=== PATIENT | female | born 1950 | race Asian ===

== ENCOUNTER → 2023-01-16 14:26 | Outpatient (CLI) | payer MEDICARE, OTHER, SELFPAY ==
[2023-01-16 15:43] LABS: Uric Acid 5.7 mg/dL (2.5-6.2)
[2023-01-18 07:54] LABS: Parathyroid Hormone Int 61 pg/mL (15-65)
== END ==
PROVIDERS: PCP Internal Medicine; Referring Provider Urology; Visit Provider Urology
DX: N20.0 Calculus of kidney (principal)
CPT/HCPCS: 36415; 83970; 84550

== ENCOUNTER → 2023-01-21 10:50 | Outpatient (CLI) | payer MEDICARE, OTHER, SELFPAY ==
--- NOTE | 2023-01-21 10:57 | DI.CT.S_ITS ---
PROCEDURE: CT ANGIO ABDOMEN PELVIS INDICATIONS: Gross hematuria TECHNIQUE: After the administration of intravenous contrast, 2.5 mm sections acquired from the diaphragm to the iliac crests. 10 mm maximum intensity projection (MIP) coronal and sagittal reformats were then performed. For radiation dose reduction, the following was used: automated exposure control. COMPARISON: [facility], CT, CT IVP, 07/12/2022, 12:47. FINDINGS: Image quality: Excellent. Lung bases: Lung bases are clear. Heart size is normal. Solid organs: Liver: The liver has no mass or intrahepatic biliary ductal dilatation. The portal vein and hepatic veins are patent. Biliary: The gallbladder has no gallstones, pericholecystic fluid, gallbladder wall thickening, or surrounding inflammatory change. Pancreas: The pancreas has no mass or ductal dilatation. There is no surrounding inflammation. Spleen: The spleen has central hypoattenuation which could be due to differential enhancement in the arterial phase versus infiltrative neoplasm. Adrenals: No hypertrophy or nodules. Kidneys: Previously seen renal calcifications are significantly reduced in volume. There are 2 calcifications in the right kidney measuring 5 mm and 6 mm and a 7 mm calcification in the left inferior pole and a few additional subcentimeter calcifications in the left kidney. The left kidney has multiple areas of low density with severe cortical thinning and cystic change similar to the prior CT on 07/12/2022. Both collecting systems have an irregular appearance, possibly scarring as previously large staghorn calculi were present. Peritoneum and bowel: Small hiatal hernia. The stomach and small bowel are normal. The large bowel has stool throughout. The small bowel has a normal caliber and appearance. The terminal ileum is normal. The large bowel has a normal caliber and appearance. The appendix is not definitively visualized and therefore acute appendicitis cannot be excluded; however there are no secondary findings to suggest acute appendicitis. No free fluid or air. Nodes and vessels: Left para-aortic adenopathy with the largest lymph node measuring 1.7 cm, unchanged compared to the prior CT. The aorta has atherosclerosis with no aneurysmal dilatation. Miscellaneous: No abdominal wall mass or hernia. PELVIS: Genitourinary: The bladder is empty. Wall thickening of the bladder. Bones: No suspicious bony lesions. No vertebral body compression fractures. Abdominal aorta: Normal caliber with diffuse atherosclerotic calcifications. No aneurysm or dissection. Mesenteric arteries: Patent Renal arteries: Patent IMPRESSION: 1. Previously seen renal calcifications are mostly no longer present. Multiple residual subcentimeter calcifications are present currently but do not appear obstructive. 2. Interval extraction of bilateral staghorn calculi with residual irregularity of the renal pelvicies. 3. Left para-aortic adenopathy, probably reactive. 4. Except for diffuse atherosclerotic calcifications, CT angiogram of the aorta and its mesenteric, renal and iliac branches is normal. Dictated by: Antonio Galvin M.D. on 01/21/2023 at 16:06 Approved by: Antonio Galvin M.D. on 01/22/2023 at 8:43
[2023-01-21 11:40] LABS: Estimated Glomerular Filt Rate > 60 mL/min (>60)
== END ==
PROVIDERS: Radiology Diagnostic Radiology; PCP Internal Medicine; Referring Provider Urology; Visit Provider Urology
DX: N20.0 Calculus of kidney (principal); R31.0 Gross hematuria; K44.9 Diaphragmatic hernia without obstruction or gangrene; I70.0 Atherosclerosis of aorta; R59.0 Localized enlarged lymph nodes
CPT/HCPCS: 36415; 74174; 82565; Q9967

== ENCOUNTER 2023-10-03 12:23 | Emergency (ER) | payer MEDICARE, OTHER, SELFPAY ==
[2023-10-03] VITALS (16 sets, daily range): BP systolic 96–135; BP diastolic 53–65; PULSE 65–88; RESP 15–29; TEMP 37.3; O2SAT 97–100; BMI 26.9
--- NOTE | 2023-10-03 12:39 | EKG_ITS ---
[address] [address] Test Date: 2023-10-03 Pat Name: Mirtha Lino Department: Room: Gender: Female Sales And Service Associate: JOSE ROBERTO : 1950 Requested By: Order Number: [id number] Reading MD: [place] Rodrigez Measurements Intervals [place] Rate: 77 P: -16 MO: 146 QRS: 77 QRSD: 134 T: 11 QT: 414 QTc: 468 Interpretive Statements Normal sinus rhythm Right bundle branch block Electronically Signed On 10-08-2023 8:59:33 PDT by [place] Rodrigez
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
[2023-10-03 16:33] LABS: Add Manual Diff / Slide Review NO; Basophils Absolute Auto 0 /uL (0-100); Basophils Percent Auto 0.5 % (0-2); Eosinophils Absolute Auto 100 /uL (0-450); Eosinophils Percent Auto 1.2 % (2-4); Hematocrit 28.4 % (36-46); Hemoglobin 9.7 g/dL (12.0-16.0); Lymphocytes Absolute Auto 2200 /uL (1100-4500); Lymphocytes Percent Auto 37.7 % (25-40); Mean Corpuscular HGB Conc 34.3 % (30-36); Mean Corpuscular Hemoglobin 31.8 PG (26-34); Mean Corpuscular Volume 92.9 fL (80-100); Monocytes Absolute Auto 400 /uL (0-900); Monocytes Percent Auto 6.4 % (3-14); Neutrophils Absolute Auto 3200 /uL (1500-7000); Neutrophils Percent Auto 54.2 % (50-75); Platelet Count 215 X10^3/uL (150-400); Red Blood Cell Count 3.06 X10^6/uL (4.0-5.2); Red Cell Distribution Width 13.1 % (11.6-14.8); White Blood Cell Count 5.8 X10^3/uL (4.5-11.0)
[2023-10-03 16:46] LABS: INR 1.1 (0.9-1.3); Prothrombin Time 12.7 SECONDS (9.4-12.5)
[2023-10-03 16:50] LABS: Alanine Aminotransferase 20 IU/L (<35); Albumin 4.2 g/dL (3.5-5.0); Albumin Globulin Ratio 1.5 (1.0-2.8); Alkaline Phosphatase 75 U/L (38-126); Aspartate Aminotransferase 30 IU/L (14-36); BUN Creatinine Ratio 47.4 (6-22); Bilirubin Total 0.6 mg/dL (0.2-1.3); Blood Urea Nitrogen 45 mg/dL (7-17); Calcium 9.3 mg/dL (8.4-10.2); Carbon Dioxide 28 mmol/L (22-32); Chloride 108 mmol/L (98-107); Estimated Glomerular Filt Rate > 60 mL/min (>60); Globulin 2.8 g/dL (1.7-4.1); Glucose 86 mg/dL (80-110); HEMOLYSIS < 15 (0-50); Magnesium 2.3 mg/dL (1.6-2.3); Sodium 140 mmol/L (137-145)
[2023-10-03 16:50] LABS: UR Morphine/Opiate cutoff 300 Negative (Negative); Ur Creatinine Normal (Normal); Ur Specific Gravity Normal (Normal); Urine Amphetamines Negative (Negative); Urine Barbiturates Negative (Negative); Urine Benzodiazepines Negative (Negative); Urine Cocaine Negative (Negative); Urine MDMA Negative (Negative); Urine Methadone Negative (Negative); Urine Methamphetamines Negative (Negative); Urine Oxycodone Negative (Negative); Urine Phencyclidine Negative (Negative); Urine Tetrahydrocannabinol Negative (Negative); Urine Tricyclic Antidepressant Negative (Negative); Urine pH Normal (Normal)
[2023-10-03 17:02] LABS: Troponin I < 0.012 ng/mL (0.01-0.034)
[2023-10-03 17:21] LABS: Thyroid Stimulating Hormone 3.29 uIU/mL (0.47-4.68)
== END 2023-10-03 17:46 | disposition home or self-care (01) ==
PROVIDERS: Emergency Provider Emergency Medicine; Family Provider Internal Medicine; PCP Internal Medicine
DX: R00.2 Palpitations (principal)
CPT/HCPCS: 80053; 80305; 83735; 84443; 84484; 85025; 85610; 93005; 99282

== ENCOUNTER 2024-01-15 07:55 | Day surgery (SDC) | payer MEDICARE, OTHER, SELFPAY ==
--- NOTE | 2024-01-15 | PATH_ITS ---
[facility] Accession Number: [id number] No. of containers..01 Tissue . 01 Material submitted: . gastrointestinal site - GASTRIC . 01 Diagnosis: GASTRIC: Gastric mucosa with no diagnostic alterations. No Helicobacter organisms identified on H/E stain. No intestinal metaplasia, dysplasia, or malignancy identified. [facility] 01/16/20241723 Local . 01 Electronically signed: . Jonny Guzmán MD, Pathologist NPI- [id number] . 01 Gross description: . GASTRIC: Received in formalin are 2 fragment(s) of ochoa, soft tissue measuring 0.2 x 0.2 x 0.2 cm to 0.4 x 0.2 x 0.2 cm submitted entirely in 1 cassette(s) /THIEN 01/16/20241723 Local . 01 Pathologist provided ICD-10: K92.1 . 01 CPT . 719670 Specimen Comment: A courtesy copy of this report has been sent to [phone] Performed at: [address] [facility] [address] [address], [place], [place] [id number] MD Jonny Guzmán MD Phone: [phone]
[2024-01-15 08:31] VITALS: BP 107/64; PULSE 77; RESP 17; TEMP 36.7; O2SAT 96
--- NOTE | 2024-01-15 08:34 | PM.HP.1 ---
History of Present Illness History of Present Illness Chief complaint: EGD & Colonoscopy Narrative: Iron deficiency anemia, melena, history of colon polyps PFSH Medical History (Updated 01/15/24 @ 08:16 by Mary Dias, ZACHARY) Hx of renal calculi Hx of tongue cancer Hx of iron deficiency anemia History of high cholesterol Hx of gastroesophageal reflux (GERD) Surgical History (Updated 01/15/24 @ 08:16 by Mary Dias RN) Hx of hysterectomy Social History Smoking Status: Never smoker alcohol intake: current Meds Home Medications and Allergies Home Medications Medication Instructions Recorded Confirmed Type atorvastatin 20 mg tablet 20 mg PO DAILY 01/15/24 01/15/24 History coenzyme Q10 100 mg capsule 100 mg PO DAILY 01/15/24 01/15/24 History ferrous sulfate 325 mg (65 mg 325 mg PO DAILY 01/15/24 01/15/24 History iron) tablet pantoprazole 40 mg tablet,delayed 40 mg PO DAILY 01/15/24 01/15/24 History release turmeric 400 mg capsule 1 PO 01/15/24 History vit C-vit N-ryvjth-lyuddatw capsule 1 cap PO DAILY 01/15/24 01/15/24 History vitamin B complex 1 cap PO DAILY 01/15/24 01/15/24 History zinc methionine sulfate 15 1 cap PO DAILY 01/15/24 01/15/24 History mg-copper gluconate 1 mg capsule Allergies Allergy/AdvReac Type Severity Reaction Status Date / Time prochlorperazine Allergy Anaphylaxis Verified 01/15/24 08:25 [From Compazine] Exam Vital Signs (past 8 hours): - 01/15/24 08:31 Temperature 98.1 F Pulse Rate 77 Respiratory Rate 17 Blood Pressure 107/64 Pulse Oximetry 96 Oxygen Delivery Method Room Air Oxygen Delivery Method Room Air Narrative Exam Narrative: Oropharynx free of lesions Chest clear to auscultation percussion Cardiac exam reveals no S3 or murmur Assessment & Plan Assessment & Plan narrative: Iron deficiency anemia melena and history of colon polyps need for follow-up EGD and colonoscopy. Risks, benefits, alternatives have been explained. Time-Based Coding :: [TOTAL MINUTES] spent with patient and on the chart (including review of chart, obtaining history, exam, reviewing outside data, placing orders, documenting exam and treatment plan, and counseling patient) on [DATE].
--- NOTE | 2024-01-15 08:35 | PM.OP.EC ---
Operative Date/Time/Diagnoses Date of procedure: 01/15/24 Pre-op diagnosis: See indication and findings Procedure & Clinicians Study performed: EGD and colonoscopy Indications: Melena and iron deficiency anemia. In addition, history of colon polyps Surgeon: Monie Barnett Procedure Notes Procedure in detail: After informed consent was obtained the patient was placed in left lateral decubitus position. The video upper scope was placed into the oropharynx and with the patient's help swallowed into the esophagus. The esophagus stomach and duodenum were carefully examined. On withdrawal retroflexed view the GE junction was performed. The patient was then turned to the colonoscope substituted. This is been placed into the rectum advanced there was a very tight turn at 40 cm. After multiple attempts to try to pass aborted the procedure.. On slow withdrawal mucosa was carefully examined. The scope was removed. The patient tolerated procedure well. Blood loss none Complications none Sedation mac Findings EGD 1. Completely normal esophagus with normal squamocolumnar junction 2. Normal proximal stomach 3. Distal stomach with a shallow healing ulceration with a pigmented base. Other areas in stomach had the area is of erythema and edema. Biopsies were taken to rule out Helicobacter 4. Normal duodenal bulb and sweep Colonoscopy 1. Very tight and angulated sigmoid turn unable to pass 2. Normal colonoscopy to 40 cm The main issue here is the melena and iron deficiency anemia from healing ulcer. She should get on famotidine 20 mg b.i.d. [id number] for the next 2 months and then consider a follow-up endoscopy to document healing. Will also follow up on the biopsy results The if in fact she needs colorectal cancer screening completed stool based test would be recommended
[2024-01-15 09:36] VITALS: BP 114/68; PULSE 75; RESP 22; TEMP 36.2; O2SAT 94
[2024-01-15 09:41] VITALS: BP 111/66; PULSE 79; RESP 17; O2SAT 95
[2024-01-15 09:46] VITALS: BP 115/64; PULSE 74; RESP 19; O2SAT 94
[2024-01-15 09:47] VITALS: BP 112/66; PULSE 72; RESP 14; TEMP 36.2; O2SAT 95
== END 2024-01-15 10:00 | disposition home or self-care (01) ==
PROVIDERS: Family Provider Internal Medicine; PCP Internal Medicine; Referring Provider Internal Medicine Gastroenterology; Visit Provider Internal Medicine Gastroenterology
PROC: 0DJD8ZZ Inspection of Lower Intestinal Tract, Via Natural or Artificial Opening Endoscopic (ICD-10-PCS; CPT 45378; principal; 2024-01-15 09:00)
PROC: 0DJ08ZZ Inspection of Upper Intestinal Tract, Via Natural or Artificial Opening Endoscopic (ICD-10-PCS; CPT 45378; 2024-01-15 09:00)
DX: K92.1 Melena (principal); D50.9 Iron deficiency anemia, unspecified; Z86.0100 Personal history of colon polyps, unspecified; Z53.09 Procedure and treatment not carried out because of other contraindication
CPT/HCPCS: 45378; 43239; J2704

== ENCOUNTER → 2024-01-29 15:03 | Outpatient (CLI) | payer MEDICARE, OTHER, SELFPAY ==
--- NOTE | 2024-01-29 15:06 | DI.CT.S_ITS ---
PROCEDURE: CT KIDNEY URETER BLADDER (KUB) INDICATIONS: KIDNEY STONES TECHNIQUE: Axial sections were acquired from the lung bases to the pubic symphysis. Coronal and sagittal reformats were performed. For radiation dose reduction, the following was used: automated exposure control, adjustment of mA and/or kV according to patient size. COMPARISON: CT angio abdomen pelvis 01/21/2023. FINDINGS: Image quality: Diagnostic. Lower Chest: No significant findings. URINARY: Right Kidney: There are 2 nonobstructing calculi in the lower pole measuring 3 and 4 mm. No hydronephrosis. Right Ureter: No hydroureter. Left Kidney: There are approximately 3 nonobstructing calculi in the left kidney with the largest in the interpolar region measuring 10 mm (HU 532). No hydronephrosis Left Ureter: No hydroureter. Bladder: Bladder is decompressed limiting evaluation. No stones. ABDOMEN: Liver: No contour-deforming solid mass. Gallbladder: No radiopaque gallstones or wall thickening. Biliary ducts: No biliary dilation. Pancreas: No ductal dilation. Spleen: Size is within normal limits. Adrenal Glands: No adrenal nodules. Stomach and Bowel: Normal colonic caliber, without significant wall thickening. Normal caliber appendix in the right lower quadrant. Peritoneum: No abnormal intraperitoneal fluid. No free air. Ventral Wall: No hernia. Abdominal Nodes: No enlarged retroperitoneal or mesenteric lymph nodes. Vessels: Aorta and inferior vena cava are normal in size. PELVIS: Pelvic Organs: Unremarkable. Pelvic Nodes: Unremarkable. Miscellaneous: No inguinal hernias are seen. Bones: Unremarkable. IMPRESSION: Bilateral nonobstructing renal calculi. No hydroureteronephrosis. Approved by: Alda Trotter M.D.,Ph.D. on 01/29/2024 at 15:59
== END ==
LOC: CT 15:04
PROVIDERS: Family Provider Internal Medicine; PCP Internal Medicine; Referring Provider Physician Assistant; Visit Provider Physician Assistant
DX: N20.0 Calculus of kidney (principal)
CPT/HCPCS: 74176